=== PATIENT | female | born 1990 | race African-American/Black ===

== ENCOUNTER 2018-03-08 07:25 | Emergency (ER) | payer MEDICAID ==
[~2018-03-08] VITALS: Ht 175.3 cm; Wt 74.1 kg
[~2018-03-08 07:25] MED LIST: CLEOCIN HC150 MG/CAP PO; MOTRIN 800800 MG/TAB PO; NO HOME MEDICATIONS; PERCOCET 325 MG1 TA2 PO; SENOKOT S 50 MG1 TAB PO; VALIUM2 MG PO
[2018-03-08 07:28] VITALS: BP 132/65; PULSE 68; TEMP 98.2
== END 2018-03-08 08:19 | disposition home or self-care (01) ==
LOC: COL.ER 07:25
DX: L02.31 Cutaneous abscess of buttock (principal)

== ENCOUNTER → 2020-08-26 | Outpatient (CLI) | payer SELFPAY ==
[~2020-08-26] MED LIST changes: +IBU600 MG PO; +PRENATAL TABLET PO
== END | disposition still patient (30) ==
LOC: ZCOL.LAB
DX: Z20.828 Contact with and (suspected) exposure to other viral communicable diseases (principal)

== ENCOUNTER 2020-09-01 06:31 | Inpatient (IN) | payer MEDICAID ==
[~2020-09-01] VITALS: Ht 170.2 cm; Wt 99.1 kg
[2020-09-01] VITALS (41 sets, daily range): BP systolic 105–153; BP diastolic 62–101; PULSE 60–110; TEMP 98.1–98.6
[~2020-09-01 06:31] MED LIST changes: -IBU600 MG PO; -PRENATAL TABLET PO
--- NOTE | 2020-09-01 07:15 | NUR ---
Patient ambulatory to LR6, changed into gown, FHR/TOCO monitors placed and explained. Patient voids and urine obtained and to lab. Patient denies any leaking of fluid/vaginal bleeding/regular contractions/decreased movement. Plan of care discussed and patient anxious as she has never been induced before. Questions answered. 0735: IV in left hand and blood obtained and to lab. IV infiltrates at this time and removed. Assessment completed/consents gone over and signed/ packet given. 0800: IV started in right forearm per Nguyen WALLIS. LR infusing.
[2020-09-01] MEDS ORDERED: PRENATAL TABLET PO (07:59)
--- NOTE | 2020-09-01 08:02 | NUR ---
Dr. Graham at bedside and assessing patient and FHR strip. Orders to start pitocin at this time. SVE-2/thick/high Patient updated on plan of care
[2020-09-01 09:11] LABS: HEMOGLOBIN 11.1 g/dl (12.5-16.0); MEAN CELL VOLUME 78 fl (80.0-100.0); MEAN CORPUSCULAR HEMOGLOBIN 25 pg (27.0-31.0); MEAN CORPUSCULAR HGB CONC 32 g/dl (33.0-37.0); MEAN PLATELET VOLUME 12.7 fl (7.4-10.4); PLATELET COUNT 368 K/mm3 (130-400); RED BLOOD COUNT 4.53 M/mm3 (4.10-5.30); REDCELL DISTRIBUTION WIDTH-CV 14.2 % (11.5-14.5)
[2020-09-01 09:17] LABS: HEMATOCRIT 35.2 % (37.0-47.0)
[2020-09-01 10:18] LABS: BASO % 0.5 % (0.0-2.0); EOS # 0.1 (0.0-0.7); EOS % 0.7 % (0-4.0); GRAN # 4.6 (1.4-6.5); GRAN % 55.9 % (42.2-75.2); LYMPH # 2.8 (1.2-3.4); MONO # 0.7 (0.1-0.6); MONO % 8.3 % (1.7-9.3)
--- NOTE | 2020-09-01 12:00 | NUR ---
1255:Patient calls out stating her water broke. This RN to bedside and clear fluid noted. SVE-2-/-3 and more clear fluid noted. 1310: Dr. Graham at bedside to assess patient and FHR strip. SVE per physician /-3. No new orders at this time. Patient requests epidural and L.Judy RADIOTELEGRAPH OPERATOR SERVICER notified. 1340: Patient sat up for epidural and L.Judy RADIOTELEGRAPH OPERATOR SERVICER at bedside. Difficulty tracing FHR due to maternal position. 1348: Test dose given and patient tolertates well. 1352: Patient repositioned and safety precautions/plan of care discussed. 1425: Patient comfortable with epidural and brown catheter placed. SVE-4-5/70/-2 and patient right lateral with left leg resting in stirrup. 1550: SVE 9-10/100/-1 and patient left lateral with right leg resting stirrup 1605: Patient sitting in dutch position.
--- NOTE | 2020-09-01 16:10 | NUR ---
FHR intermittently tracing maternal heart rate and this RN adjusts monitor. 1610: Dr. Graham at bedside and SVE per physician- complete and orders to get ready for delivery. Patient prepped for vaginal delivery . 1613: Melissa cathter removed and patient tolerates well. 1617: Pericare done and patient pushes with contraction. 1618: Spontaneous vaginal delivery of viable female-head followed by body. Infant bulb syringed and to patients abdomen and Renetta RN assumes care of . Dr. Graham repairs laceration 1624: Spontaneous delivery of placenta and pitocin bolus started at 333mU/hr per protocol. Fundal massage done/firm/bleeding WNL Pericare done and patient repositioned. Ice pack to perineum and plan of care discussed.
[2020-09-02] VITALS: BP 139/77; PULSE 84; TEMP 98.2
[2020-09-02 03:40] VITALS: BP 148/76; PULSE 79; TEMP 98.1
[2020-09-02 07:30] VITALS: BP 137/87; PULSE 94; TEMP 97.8
[2020-09-02] MEDS ORDERED: IBU600 MG PO (08:37)
--- NOTE | 2020-09-02 09:20 | NUR ---
Slab Polisher responded to consult in OB as patient recently moved from [place] and transferred care here. Patient also had a history of marijuana use per consult. CITLALY collaborated with RN who advised patient's UDS was cancelled here as her history of marijuana use was 2-3 years ago. SW met with patient to assess for needs. Patient reports she moved from [place], [place] in May and has been living with her mother, Silvia aVlencia (ph#[phone]) in [place]. Patient has three other children, Yola (8), Italo (7), and Amanda (5) who also live with her. Patient states her other chlidren are at home with her mother, Silvia at this time. Patient states her sister, Harriet (ph#[phone]) also lives in [place] and is supportive. 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 Patient states her mother, Silvia works for the school district but is planning on staying home and providing childcare for her new baby once she returns to work. Patient has food stamps and is working on establishing WIC. Patient states she has been trying to contact the [facility] but has only been able to leave messages for the WIC office. Patient states the father of the , Ancelmo still lives in [place] but plans to be involved. Patient states Ancelmo has called to check in on her and baby. Patient states her father, Kit was providing transportation to her appointments and will continue providing transportation to appointments after discharge. Patient states when she was in [place], she was receiving care at [facility], however it did not last long as her insurance was cancelled. Patient reports she has all supplies needed for baby including wipes, diapers, clothes, carseat. Patient states she has money on her EBT card to purchase more formula at discharge. Patient states she has good family support and has no concerns about returning home at discharge. CITLALY addressed marijuana history. Patient states that was in the past and that she did not use marijuana during this . CITLALY then provided [facility] Resource Guide but edited the guide with contact information for local [place] agencies. After meeting with patient, CITLALY left a message for WIC office at [facility]. CITLALY collaborated the above information to Velma WALLIS. No additional concerns at this time.
--- NOTE | 2020-09-02 09:49 | NUR ---
Initial visit; Patient thanked Dental Floss Packer for looking in on her and baby girl. Dental Floss Packer offered congratulations and God's blessings.
[2020-09-02 11:15] VITALS: BP 122/75; PULSE 75; TEMP 97.9
--- NOTE | 2020-09-02 11:25 | NUR ---
Auxiliary Operator spoke with Delmis at the [facility] office and provided patient's phone number. Delmis advised she would call patient.
[2020-09-02 15:50] VITALS: BP 143/79; PULSE 83; TEMP 98
== END 2020-09-02 18:45 | disposition home or self-care (01) | DRG 807 ==
LOC: OB 06:31 → LDR 07:02 → OB 14:24
PROVIDERS: ADMIT Obstetrics & Gynecology
PROC: 10E0XZZ Delivery of Products of Conception, External Approach (ICD-10-PCS; principal; 2020-09-01)
PROC: 0UQMXZZ Repair Vulva, External Approach (ICD-10-PCS; 2020-09-01)
PROC: 3E033VJ Introduction of Other Hormone into Peripheral Vein, Percutaneous Approach (ICD-10-PCS; 2020-09-01)
DX: O99.02 Anemia complicating childbirth (principal); Z37.0 Single live birth; O70.0 First degree perineal laceration during delivery; Z3A.39 39 weeks gestation of pregnancy
CPT/HCPCS: J2540; J2590; J7120